=== PATIENT | female | born 1995 | race African-American/Black ===

== ENCOUNTER 2018-01-25 06:02 | Emergency (ER) | payer OTHER ==
[2018-01-25 06:10] VITALS: BP 154/71; PULSE 101; TEMP 98; BMI 20.9
[2018-01-25] MEDS ORDERED: ALPRAZolam 0.25 MG TABLET ONE (06:22)
[2018-01-25] MEDS ORDERED: ALPRAZolam 1 MG TABLET PO PRN (06:22)
--- NOTE | 2018-01-25 06:22 | PDOC ---
History of Present Illness - General Chief Complaint: Psychiatric Stated Complaint: CHEST PAIN Time Seen by Provider: 01/25/18 06:20 History Source: Patient Exam Limitations: No Limitations - History of Present Illness Initial Comments: 01/25/18 06:23 This is a 22-year-old female who comes in hyperventilating complaining that she can't breathe and has chest pain. Patient otherwise is healthy. Patient denies history of anxiety or panic attacks in the past. Patient said she's been under a lot of stress lately. She is also complaining of some carpopedal spasms. PAST MEDICAL HISTORY: no significant history PAST SURGICAL HISTORY: no significant history FAMILY HISTORY: no pertinant history SOCIAL HISTORY: Pt lives with family and is employed. MEDICATIONS: reviewed ALLERGIES: As per nursing notes ROS General: No fevers or chills, no weakness, no weight loss HEENT: No change in vision. No sore throat,. No ear pain CardioVascular: + chest pain +shortness of breath Respiratory:No cough, or wheezing. Gastrointestinal: no nausea, vomiting, diarrhea or constipation, No rectal bleeding Genitourinary: No dysuria, hematuria, or frequency Musculoskeletal: . No joint pain or swelling Neurologic: No headache, vertigo, dizziness or loss of consciousness Psychiatric: nor depression Skin: No rashes or easy bruising Endocrine: no increased thirst or abnormal weight change Allergic: no skin or latex allergy All other systems reviewed and normal Exam: General: Well-nourished well-developed individual, patient is anxious appearing and hyperventilating HEENT: Throat: Normal, tonsils normal, no erythema or exudate Neck: Supple, no meningeal signs, no lymphadenopathy Eyes::Pupils equal reactive and round, extraocular motion intact Chest: Nontender to palpation Cardiac: S1-S2 normal, regular rate and rhythm, no murmurs rubs or gallops Respiratory: Lungs clear to auscultation bilateral Abdomen: Soft, nondistended, normal bowel sounds, there is no tenderness on palpation diffusely Extremities: Warm, dry, no cyanosis, clubbing, or edema Skin: No rashes Neuro: Alert and oriented x3, CN II - XII intact, nonfocal exam with normal strength, normal sensation, normal reflexes, normal gait, Psych: Anxiety Patient treated in the ED. Nursing notes are reviewed and incorporated into the medical decision-making. Vital signs reviewed. Patient given Xanax EKG obtained that showed normal sinus rhythm rate 88, was a completely normal EKG, with no acute ST-T wave changes Past History - Past Medical History Allergies/Adverse Reactions: Allergies Allergy/AdvReac Type Severity Reaction Status Date / Time No Known Drug Allergies Allergy Verified 01/25/18 06:03 Home Medications: Ambulatory Orders NK [No Known Home Medication] 01/25/18 COPD: No Other medical history: SEASONAL/ENVIRONMENTAL ALLERGIES - Suicide/Smoking/Psychosocial Hx Smoking History: Never smoked *Physical Exam - Vital Signs Last Vital Signs Temp Pulse Resp BP Pulse Ox 98 F 101 H 48 H 154/71 100 01/25/18 06:04 01/25/18 06:04 01/25/18 06:04 01/25/18 06:04 01/25/18 06:04 *DC/Admit/Observation/Transfer Diagnosis at time of Disposition: Anxiety - Discharge Dispostion Disposition: HOME Condition at time of disposition: Stable Decision to Admit order: No - Referrals Referrals: Dejan Rao MD [Primary Care Provider] - - Patient Instructions Additional Instructions: Whay you experienced this morning was a panic attack. They may reoccur or if they do recur is importantly follow-up with her therapist to get some medication that you can take for them see you don't have to come to the ED. Return to the emergency department immediately with ANY new, persistent or worsening symptoms. Continue any medications as previously prescribed by your physician. You should follow up with your primary doctor as soon as possible regarding today's emergency department visit. . Please make sure your doctor reviews the results of your emergency evaluation. Thank you for coming to the Emergency Department today for your care. It was a pleasure to see you today. Please note that your evaluation is INCOMPLETE until you follow-up with your doctor. - Post Discharge Activity
--- NOTE | 2018-04-24 14:20 | EKG ---
Test Reason : Blood Pressure : / mmHG Vent. Rate : 088 BPM Atrial Rate : 088 BPM P-R Int : 150 ms QRS Dur : 072 ms QT Int : 356 ms P-R-T Axes : 062 059 046 degrees QTc Int : 430 ms NORMAL SINUS RHYTHM NORMAL ECG NO PREVIOUS ECGS AVAILABLE Confirmed by PRIYA COVINGTON, GEN ([id number]), staff editor MONICA DELGADO ([id number]) on 04/24/2018 2:20:12 PM Referred By: DR TROY Confirmed By:GEN POWERS MD
== END 2018-01-25 07:02 | disposition home or self-care (01) ==
LOC: FER 06:02
DX: F41.9 Anxiety disorder, unspecified (principal); J30.2 Other seasonal allergic rhinitis
CPT/HCPCS: 93005; 99282-25

== ENCOUNTER 2018-06-15 15:13 | Emergency (ER) | payer OTHER ==
[2018-06-15 15:32] VITALS: BP 125/59; PULSE 77; TEMP 98.3; BMI 20.7
--- NOTE | 2018-06-15 16:18 | PDOC ---
History of Present Illness - General History Source: Patient Exam Limitations: No Limitations - History of Present Illness Initial Comments: 06/15/18 16:25 The patient is a 23 YOF with a PMH of childhood asthma who presents to the ER with left sided chest pain. Patient states that yesterday it was raining outside and she slipped going up a wooden staircase. She sustained the fall on her left side, and is now complaining of pain to her sternum and left rib cage. Patient reports the left sided rib cage pain is exacerbated with deep breathing. Patient states she was feeling dizzy and mildly short of breath today while showering prompting her to come to the ER for further evaluation. Denies any abuse at home. Denies head trauma, LOC, or injuries to any other part of her body. Patient has been ambulating since the incident. She denies any previous fractures or surgeries. Patient's LMP was on May 25, not currently on control. The patient denies chest pain, headache, fever, chills, nausea, vomit, diarrhea and constipation. Denies dysuria, frequency, urgency and hematuria. Allergies: NKA Past surgical history: None reported. Social history: No reported drug or cigarette use. Drinks socially. <Nely Walker - Last Filed: 06/15/18 16:32> <Terrance Milton - Last Filed: 06/15/18 17:29> - General Chief Complaint: Injury Stated Complaint: LEFT CHEST WALL PAIN Time Seen by Provider: 06/15/18 16:03 Past History <Nely Walker - Last Filed: 06/15/18 16:32> - Past Medical History COPD: No - Suicide/Smoking/Psychosocial Hx Smoking History: Never smoked Have you smoked in the past 12 months: No Information on smoking cessation initiated: No Hx Alcohol Use: No Drug/Substance Use Hx: No <Terrance Milton - Last Filed: 06/15/18 17:29> - Past Medical History Allergies/Adverse Reactions: Allergies Allergy/AdvReac Type Severity Reaction Status Date / Time No Known Drug Allergies Allergy Verified 06/15/18 15:14 Home Medications: Ambulatory Orders Naproxen [Naprosyn -] 375 mg PO BID PRN #20 tablet 06/15/18 Review of Systems - Review of Systems Able to Perform ROS?: Yes Comments:: 06/15/18 16:31 REVIEW OF SYSTEMS: GENERAL/CONSTITUTIONAL: No fever or chills. No weakness. No weight change. HEAD, EYES, EARS, NOSE AND THROAT: No change in vision. No ear pain or discharge. No sore throat. CARDIOVASCULAR: No chest pain or shortness of breath. RESPIRATORY: No cough, wheezing, or hemoptysis. GASTROINTESTINAL: No nausea and vomiting. No diarrhea. No prior abdominal surgery. GENITOURINARY: No dysuria, frequency, or change in urination. MUSCULOSKELETAL: (+) Left rib cage pain. (+) Pain to the sternum. No neck or back pain. SKIN AND BREASTS: No rash or easy bruising. NEUROLOGIC: No headache, loss of consciousness, or loss of sensation. (+) Dizziness earlier, now resolved. PSYCHIATRIC: No depression or anxiety. ENDOCRINE: No increased thirst. No abnormal weight change. HEMATOLOGIC/LYMPHATIC: No anemia, easy bleeding, or history of blood clots. ALLERGIC/IMMUNOLOGIC: No hives or skin allergy. No latex allergy. <Nely Walker - Last Filed: 06/15/18 16:32> *Physical Exam - Vital Signs Last Vital Signs Temp Pulse Resp BP Pulse Ox 98.3 F 77 20 125/59 L 100 06/15/18 15:14 06/15/18 15:14 06/15/18 15:14 06/15/18 15:14 06/15/18 15:14 <Nely Walker - Last Filed: 06/15/18 16:32> - Vital Signs Last Vital Signs Temp Pulse Resp BP Pulse Ox 98.3 F 77 20 125/59 L 100 06/15/18 15:14 06/15/18 15:14 06/15/18 15:14 06/15/18 15:14 06/15/18 15:14 - Physical Exam Comments: 06/15/18 16:34 GENERAL: The patient is awake, alert, and fully oriented, in no acute distress. HEAD: Normal with no signs of trauma. EYES: Pupils equal, round and reactive to light, extraocular movements intact, sclera anicteric, conjunctiva clear. ENT: Ears normal, nares patent, oropharynx clear without exudates. Moist mucous membranes. NECK: Normal range of motion, supple without lymphadenopathy, JVD, or masses. LUNGS: Breath sounds equal, clear to auscultation bilaterally. Mild splinting on deep breath due to pain in the left rib cage. No wheezes, and no crackles. Positive lower sternal tenderness to palpation. Positive left lower ribs tender to palpation in the anterior axillary line. No ecchymosis. HEART: Regular rate and rhythm, normal S1 and S2 without murmur, rub or gallop. ABDOMEN: Soft, nontender, normoactive bowel sounds. No guarding, no rebound. No masses. EXTREMITIES: Normal range of motion, no edema. No clubbing or cyanosis. No cords, erythema, or tenderness. NEUROLOGICAL: Cranial nerves II through XII grossly intact. Normal speech, normal gait. PSYCH: Normal mood, normal affect. SKIN: Warm, Dry, normal turgor, old resolving bruises on the back, patient denies abuse. <Terrance Milton - Last Filed: 06/15/18 17:29> Medical Decision Making - Medical Decision Making 06/15/18 17:26 Patient is a healthy 23-year-old female who fell on the steps last night. She is complaining of sternal pain and left rib pain. On exam, she has sternal and rib tenderness on the left side. Lung sounds are normal. Chest x-ray PA and lateral shows no signs of pneumothorax. Left rib series shows no rib fractures. This is based upon my preliminary review. Final radiology reading is pending at the time of discharge. Follow-up process is in place for any discrepancy in the reading. Impression: Sternal and left rib contusion Plan: Prescription for Naprosyn twice a day. Ice packs advised. Follow-up with medical PMD this coming week if symptoms are not resolving. <Terrance Milton - Last Filed: 06/15/18 17:29> *DC/Admit/Observation/Transfer - Attestations Scribe Attestion: 06/15/18 16:32 Documentation prepared by Nely Walker, acting as associate medical director for Terrance Milton MD. <Nely Walker - Last Filed: 06/15/18 16:32> - Discharge Dispostion Decision to Admit order: No - Attestations Physician Attestion: 06/15/18 17:29 The scribe's documentation has been prepared under my direction and personally reviewed by me in its entirety. I have confirmed that the note above accurately reflects all work, treatment, procedures, and medical decision- making performed by me. <Terrance Milton - Last Filed: 06/15/18 17:29> Diagnosis at time of Disposition: Contusion of rib on left side Qualifiers: Encounter type: initial encounter Qualified Code(s): S20.212A - Contusion of left front wall of thorax, initial encounter - Discharge Dispostion Disposition: HOME Condition at time of disposition: Stable - Prescriptions Prescriptions: Naproxen [Naprosyn -] 375 mg PO BID PRN #20 tablet PRN Reason: Pain
[2018-06-15] MEDS ORDERED: NAPROXEN 375 MG TABLET (FP) PO ONE (16:25)
[2018-06-15] MEDS ORDERED: NAPROXEN 375 MG TABLET (FP) ONE (16:26)
== END 2018-06-15 17:41 | disposition home or self-care (01) ==
LOC: FER 15:13
DX: S20.212A Contusion of left front wall of thorax, initial encounter (principal); W10.9XXA Fall (on) (from) unspecified stairs and steps, initial encounter; Y93.89 Activity, other specified; Y92.89 Other specified places as the place of occurrence of the external cause
CPT/HCPCS: 71046-TC-FY; 71101-TC-LT-FY; 81025; 99281-25

== ENCOUNTER 2019-04-23 15:40 | Emergency (ER) | payer OTHER ==
[2019-04-23 15:49] VITALS: BP 111/73; PULSE 70; TEMP 98.4; BMI 21.2
[2019-04-23] MEDS ORDERED: DIPHTH,PERTUSS(ACELL),TET 0.5 ML DISP.SYRIN IM ONE ×2 (15:49→16:15)
--- NOTE | 2019-04-23 15:49 | PDOC ---
Rapid Medical Evaluation Chief Complaint: Laceration Time Seen by Provider: 04/23/19 15:47 Medical Evaluation: Allergies Allergy/AdvReac Type Severity Reaction Status Date / Time No Known Drug Allergies Allergy Verified 04/23/19 15:46 04/23/19 15:47 Pt c/o : punched a glass today, now with lac, unknown last tdap Pt on brief exam:noted superficial lac distal of rt 1st dip joint dorsally, no nail bed involvement Pt ordered for : tdap Pt to proceed to the ED Discharge Disposition - Diagnosis Laceration - Referrals - Patient Instructions - Post Discharge Activity
--- NOTE | 2019-04-23 16:16 | PDOC ---
History of Present Illness - General Chief Complaint: Laceration Stated Complaint: RT HAND INJURY Time Seen by Provider: 04/23/19 15:47 History Source: Patient - History of Present Illness Timing/Duration: reports: this afternoon Location: reports: hands Past History - Past Medical History Allergies/Adverse Reactions: Allergies Allergy/AdvReac Type Severity Reaction Status Date / Time No Known Drug Allergies Allergy Verified 04/23/19 15:46 Home Medications: Ambulatory Orders NK [No Known Home Medication] 04/23/19 COPD: No - Immunization History Immunization Up to Date: Yes - Psycho Social/Smoking Cessation Hx Smoking History: Never smoked Have you smoked in the past 12 months: No Information on smoking cessation initiated: No Hx Alcohol Use: No Drug/Substance Use Hx: No Review of Systems - Review of Systems Musculoskeletal: No: Joint Pain, Joint Swelling Neurological: No: Numbness, Tingling *Physical Exam - Vital Signs Last Vital Signs Temp Pulse Resp BP Pulse Ox 98.4 F 70 18 111/73 97 04/23/19 15:47 04/23/19 15:47 04/23/19 15:47 04/23/19 15:47 04/23/19 15:47 - Physical Exam General Appearance: Yes: Appropriately Dressed. No: Apparent Distress Neck: positive: Supple Respiratory/Chest: negative: Respiratory Distress Extremity: positive: Other (~1cm superficial lac to distal phalanx of dorsum of R thumb, no gross fb, FROMI, sensation intact) Integumentary: positive: Dry, Warm Neurologic: positive: Fully Oriented, Alert, Normal Mood/Affect Procedures - Laceration/Wound Repair Right Finger Wound Length: to 2.5 cm Wound Explored: clean Wound's Depth, Shape: superficial Irrigated w/ Saline: Yes Betadine Prep: Yes Wound Repaired With: Dermabond Splint Applied: Yes ED Treatment Course - RADIOLOGY Radiology Studies Ordered: Category Date Time Status FINGER(S) RIGHT [RAD] Stat Radiology 04/23/19 16:11 Ordered Medical Decision Making - Medical Decision Making 04/23/19 16:55 23-year-old female no significant history here with laceration to Rthumb after punching a glass today. No numbness. Painful range of motion. Does not remember her last tetanus see exam Lac to R thumb No e/o complications at this time XR haley for fb Tetanus updated Dermabond w/ finger splint pained Wound check as needed in 2 days Discharge - Discharge Information Problems reviewed: Yes Clinical Impression/Diagnosis: Laceration Condition: Good Disposition: HOME - Follow up/Referral Referrals: Shelley Euceda MD [Primary Care Provider] - - Patient Discharge Instructions Patient Printed Discharge Instructions: DI for Laceration Repair Additional Instructions: You had dermabond adhesive placed today. Dermabond acts as a water resistant bandage so does not require external bandages Antibiotic should not be used because it can breakdown the adhesive prematurely You may shower while the adhesive is on the skin but do not scrub or soak the area for 7 to 10 days. Wet skin should be patted dry The adhesive will peel off in about 5 to 10 days. Return to ER for any signs of infection as discussed in ED today You were given a tetanus vaccine which is usually good for the next 10 years - Post Discharge Activity
== END 2019-04-23 16:53 | disposition home or self-care (01) ==
LOC: JERFT 15:40
PROC: 0HQFXZZ Repair Right Hand Skin, External Approach (ICD-10-PCS; principal; 2019-04-23)
PROC: 3E0234Z Introduction of Serum, Toxoid and Vaccine into Muscle, Percutaneous Approach (ICD-10-PCS; 2019-04-23)
DX: S61.011A Laceration without foreign body of right thumb without damage to nail, initial encounter (principal); W22.8XXA Striking against or struck by other objects, initial encounter; Y93.89 Activity, other specified; Y92.89 Other specified places as the place of occurrence of the external cause
CPT/HCPCS: 12001; 73140-TC-RT-FY; 90471; 90715; 99283-25